=== PATIENT | male | born 1960 | race Caucasian/White ===

== ENCOUNTER 2016-07-27 08:05 | Emergency (ER) | payer OTHER ==
[~2016-07-27] VITALS: Ht 170.2 cm; Wt 62.6 kg
[2016-07-27 08:23] LABS: BASOPHIL COUNT 0.1 K/uL (0-0.1); EOSINOPHIL (%) 3.7 % (0-5); EOSINOPHIL COUNT 0.2 K/uL (0-0.3); HEMATOCRIT 43.4 % (38.0-50.0); LYMPHOCYTE COUNT 2.1 K/uL (1.0-2.8); MCH 33.8 PG (29.0-34.0); MCHC 34.8 G/DL (30.0-36.0); MCV 97.1 FL (86-99); MEAN PLAT.VOLUME 9.4 uM^3 (9.0-12.4); MONOCYTE (%) 10.4 % (3-12); MONOCYTE COUNT 0.5 K/uL (0-0.8); NEUTROPHIL (%) 44.3 % (45-76); NEUTROPHIL COUNT 2.3 K/uL (1.8-6.4); PLATELET COUNT 206 K/uL (156-360); RBC DIS.WIDTH-CV 12.3 % (11.8-14.6); RBC DIS.WIDTH-SD 42.2 % (39-53); RED BLOOD COUNT 4.47 M/uL (4.00-5.50); WHITE BLOOD COUNT 5.2 K/uL (4.1-10.2)
[2016-07-27 08:36] LABS: AMYLASE 89 IU/L (1-118); CHLORIDE 110 mEq/L (99-109); POTASSIUM 4.6 mEq/L (3.7-5.4); SODIUM 143 mEq/L (136-147)
[2016-07-27 08:38] LABS: INTER. NORMALIZED RATIO 1.1; PROTHROMBIN TIME 11.1 (9.2-11.2); PTT 29.9 (25-32)
[2016-07-27 08:38] LABS: GLUCOSE 85 mg/dL (70-99)
[2016-07-27 08:39] LABS: ANION GAP 12 MEQ/L (2-14)
[2016-07-27 08:41] LABS: SERUM ETHYL ALCOHOL < 10 mg/dL
[2016-07-27 08:42] LABS: GFR ESTIMATE (CALCULATED) > 59 mL/min/
[2016-07-27 08:43] LABS: UREA NITROGEN (BUN) 9 mg/dL (9-23)
[2016-07-27 08:45] LABS: LIPASE 32 U/L (1.0-51.0)
[2016-07-27 08:47] LABS: TROP-I INTERPRETATION NEGATIVE; TROPONIN-I < 0.01 ng/mL (0.0-0.30)
[2016-07-27] MEDS ORDERED: ZUBSOLV 0.7-0.1 EACH SL (11:39)
[2016-07-27 14:28] VITALS: BP 145/81
== END 2016-07-27 14:30 | disposition short-term general hospital (02) ==
LOC: EME → EDBD 08:05 → EME 08:05
PROVIDERS: Emergency Medicine
DX: G45.9 Transient cerebral ischemic attack, unspecified (principal); I65.22 Occlusion and stenosis of left carotid artery; I66.02 Occlusion and stenosis of left middle cerebral artery; F17.200 Nicotine dependence, unspecified, uncomplicated; Z88.5 Allergy status to narcotic agent; Z88.6 Allergy status to analgesic agent; Z88.8 Allergy status to other drugs, medicaments and biological substances; F12.10 Cannabis abuse, uncomplicated; F11.20 Opioid dependence, uncomplicated
CPT/HCPCS: 70450; 70544; 70549; 70551; 80048; 81003; 82150; 83690; 84484; 85025; 85610; 85730; 86850; 86900; 86901; 93005; 99281; 99285; G0480

== ENCOUNTER 2016-08-08 15:55 | Emergency (ER) | payer OTHER ==
[~2016-08-08] VITALS: Ht 170.2 cm; Wt 57.3 kg
[~2016-08-08 15:55] MED LIST: ZUBSOLV 0.7-0.1 EACH SL
[2016-08-08 16:44] LABS: BASOPHIL COUNT 0.1 K/uL (0-0.1); EOSINOPHIL (%) 2.1 % (0-5); EOSINOPHIL COUNT 0.2 K/uL (0-0.3); HEMATOCRIT 45.3 % (38.0-50.0); IMMATURE GRANULOCYTE (%) 0.1 % (0.0-0.7); IMMATURE GRANULOCYTE COUNT 0.1 K/uL; MCH 32.8 PG (29.0-34.0); MCHC 34.2 G/DL (30.0-36.0); MEAN PLAT.VOLUME 9.6 uM^3 (9.0-12.4); MONOCYTE (%) 8.7 % (3-12); MONOCYTE COUNT 0.7 K/uL (0-0.8); NEUTROPHIL (%) 62.3 % (45-76); NEUTROPHIL COUNT 4.7 K/uL (1.8-6.4); PLATELET COUNT 240 K/uL (156-360); RBC DIS.WIDTH-CV 11.7 % (11.8-14.6); RED BLOOD COUNT 4.72 M/uL (4.00-5.50); WHITE BLOOD COUNT 7.6 K/uL (4.1-10.2)
[2016-08-08 16:49] LABS: INTER. NORMALIZED RATIO 1.2; PROTHROMBIN TIME 11.8 (9.2-11.2); PTT 28.5 (25-32)
[2016-08-08 16:53] LABS: AMYLASE 84 IU/L (1-118); CHLORIDE 106 mEq/L (99-109); POTASSIUM 3.7 mEq/L (3.7-5.4); SODIUM 142 mEq/L (136-147)
[2016-08-08 16:55] LABS: GLUCOSE 86 mg/dL (70-99)
[2016-08-08 16:56] LABS: ANION GAP 11 MEQ/L (2-14)
[2016-08-08 16:58] LABS: GFR ESTIMATE (CALCULATED) > 59 mL/min/; SERUM ETHYL ALCOHOL < 10 mg/dL
[2016-08-08 16:59] LABS: UREA NITROGEN (BUN) 11 mg/dL (9-23)
[2016-08-08 17:01] LABS: LIPASE 45 U/L (1.0-51.0); TROP-I INTERPRETATION NEGATIVE; TROPONIN-I < 0.01 ng/mL (0.0-0.30)
[2016-08-08 18:47] VITALS: BP 147/102
== END 2016-08-08 18:29 | disposition short-term general hospital (02) ==
LOC: EME → EDBD 15:55 → EME 15:55
PROVIDERS: Emergency Medicine
DX: I63.312 Cerebral infarction due to thrombosis of left middle cerebral artery (principal); R29.717 NIHSS score 17; F17.200 Nicotine dependence, unspecified, uncomplicated; Z86.73 Personal history of transient ischemic attack (TIA), and cerebral infarction without residual deficits; Z88.6 Allergy status to analgesic agent
CPT/HCPCS: 70450; 71010; 80048; 81003; 82150; 83690; 84484; 85025; 85610; 85730; 86850; 86900; 86901; 93005; 99281; 99285; G0480

== ENCOUNTER 2016-08-29 10:10 | Inpatient (IN) | payer OTHER ==
[~2016-08-29] VITALS: Ht 180.3 cm; Wt 53.5 kg
[2016-08-29] MEDS ORDERED: AUGMENTIN875 MG PO (20:52)
[2016-08-29] MEDS ORDERED: ASPIR 8181 M1 PO (20:55)
[2016-08-29] MEDS ORDERED: LIPITOR80 MG PO (20:56)
[2016-08-29] MEDS ORDERED: PROZAC20 MG PO (20:56)
[2016-08-29] MEDS ORDERED: PLAVIX75 MG PO (20:56)
[2016-08-29] MEDS ORDERED: FOLIC ACID1 MG PO (20:57)
[2016-08-29] MEDS ORDERED: HEPARIN SO5000 UNITS SC (20:58)
[2016-08-29] MEDS ORDERED: THERAPEUTIC M PO (20:58)
[2016-08-29] MEDS ORDERED: NICODERM CQ1 EAC2 TD (20:59)
[2016-08-29] MEDS ORDERED: NYSTATIN100000 UN1 PO (21:00)
[2016-08-29] MEDS ORDERED: THIAMINE HCL100 MG PO (21:00)
[2016-08-29] MEDS ORDERED: TYLENOL REGULA325 MG PO (21:02)
[2016-08-29] MEDS ORDERED: IMODIUM A-D2 M2 PO (21:02)
[2016-08-29] MEDS ORDERED: NAPROSYN250 MG PO (21:03)
[2016-08-29 21:18] VITALS: BP 161/85
[2016-08-30] VITALS: BP 127/76
[2016-08-30 05:43] VITALS: BP 132/71
[2016-08-30 06:15] LABS: MCH 31.5 PG (29.0-34.0); MCHC 32.1 G/DL (30.0-36.0); MCV 98.2 FL (86-99); MEAN PLAT.VOLUME 10.1 uM^3 (9.0-12.4); RBC DIS.WIDTH-CV 12.2 % (11.8-14.6); RBC DIS.WIDTH-SD 43.9 % (39-53); RED BLOOD COUNT 3.87 M/uL (4.00-5.50); WHITE BLOOD COUNT 9.4 K/uL (4.1-10.2)
[2016-08-30 06:50] LABS: ALKALINE PHOSPHATASE 87 IU/L (3-129); ANION GAP 11 MEQ/L (2-14); CHLORIDE 111 MEQ/L (99-109); GFR ESTIMATE (CALCULATED) > 59 mL/min/; GLUCOSE 119 mg/dL (70-99); POTASSIUM 4.2 MEQ/L (3.7-5.4); SAMPLE HEMOLYSIS CHECK 0; SAMPLE ICTERIC CHECK 0; SAMPLE LIPEMIA CHECK 0; SODIUM 148 MEQ/L (136-147); TOTAL BILIRUBIN 0.3 MG/DL (0.0-1.0); UREA NITROGEN (BUN) 22 mg/dL (9-23)
[2016-08-30 07:11] LABS: PLATELET COUNT 445 K/uL (156-360)
[2016-08-30 15:40] VITALS: BP 140/70
[2016-08-31 05:48] VITALS: BP 140/86
[2016-08-31 13:55] VITALS: BP 120/70
[2016-09-01 06:16] VITALS: BP 139/91
[2016-09-01 09:38] VITALS: BP 122/80
[2016-09-01 15:42] VITALS: BP 132/84
[2016-09-02 00:30] VITALS: BP 131/87
[2016-09-02 05:41] VITALS: BP 130/80
[2016-09-02 10:36] LABS: HEMATOCRIT 39.8 % (38.0-50.0); MCH 31.9 PG (29.0-34.0); MCHC 32.4 G/DL (30.0-36.0); MCV 98.3 FL (86-99); MEAN PLAT.VOLUME 10.3 uM^3 (9.0-12.4); PLATELET COUNT 350 K/uL (156-360); RBC DIS.WIDTH-CV 12.4 % (11.8-14.6); RBC DIS.WIDTH-SD 44.8 % (39-53); RED BLOOD COUNT 4.05 M/uL (4.00-5.50); WHITE BLOOD COUNT 7.3 K/uL (4.1-10.2)
[2016-09-02 11:16] LABS: TROP-I INTERPRETATION NEGATIVE; TROPONIN-I < 0.01 ng/mL (0.0-0.30)
[2016-09-02 11:54] LABS: ALKALINE PHOSPHATASE 75 IU/L (3-129); ANION GAP 11 MEQ/L (2-14); CHLORIDE 108 MEQ/L (99-109); GFR ESTIMATE (CALCULATED) > 59 mL/min/; GLUCOSE 147 mg/dL (70-99); SAMPLE HEMOLYSIS CHECK 0; SAMPLE ICTERIC CHECK 0; SAMPLE LIPEMIA CHECK 0; SODIUM 148 MEQ/L (136-147); TOTAL BILIRUBIN 0.4 MG/DL (0.0-1.0); UREA NITROGEN (BUN) 21 mg/dL (9-23)
[2016-09-02 15:02] VITALS: BP 115/74
[2016-09-03 05:30] VITALS: BP 115/68
[2016-09-03 15:37] VITALS: BP 107/69
[2016-09-04 09:46] LABS: EOSINOPHIL (%) 2.6 % (0-5); EOSINOPHIL COUNT 0.1 K/uL (0-0.3); HEMATOCRIT 40.6 % (38.0-50.0); IMMATURE GRANULOCYTE (%) 0.4 % (0.0-0.7); LYMPHOCYTE COUNT 1.5 K/uL (1.0-2.8); MCH 30.9 PG (29.0-34.0); MCV 99.5 FL (86-99); MEAN PLAT.VOLUME 10.4 uM^3 (9.0-12.4); MONOCYTE (%) 7.7 % (3-12); MONOCYTE COUNT 0.4 K/uL (0-0.8); NEUTROPHIL (%) 58.7 % (45-76); PLATELET COUNT 295 K/uL (156-360); RBC DIS.WIDTH-CV 12.6 % (11.8-14.6); RBC DIS.WIDTH-SD 45.2 % (39-53); RED BLOOD COUNT 4.08 M/uL (4.00-5.50); WHITE BLOOD COUNT 5.1 K/uL (4.1-10.2)
[2016-09-04 10:22] LABS: HCV RNA (LOG IU/mL) 5.54 (<1.18)
[2016-09-04 15:40] VITALS: BP 130/84
[2016-09-05 05:34] VITALS: BP 115/70
[2016-09-05 16:14] VITALS: BP 126/76
[2016-09-06 16:14] VITALS: BP 130/80
[2016-09-06 20:50] VITALS: BP 117/77
[2016-09-07 04:12] VITALS: BP 110/62
[2016-09-07 08:48] VITALS: BP 100/60
[2016-09-07 15:35] VITALS: BP 120/74
[2016-09-08 05:51] VITALS: BP 105/72
[2016-09-08 06:57] VITALS: BP 110/70
[2016-09-08 15:27] VITALS: BP 111/71
[2016-09-09 06:11] VITALS: BP 112/61
[2016-09-09 16:15] VITALS: BP 115/74
[2016-09-09 19:38] LABS: HEMATOCRIT 35.8 % (38.0-50.0); MCH 31.6 PG (29.0-34.0); MCHC 32.4 G/DL (30.0-36.0); MCV 97.5 FL (86-99); RED BLOOD COUNT 3.67 M/uL (4.00-5.50); WHITE BLOOD COUNT 5.9 K/uL (4.1-10.2)
[2016-09-09 19:39] LABS: MEAN PLAT.VOLUME 10.7 uM^3 (9.0-12.4); PLATELET COUNT 208 K/uL (156-360); RBC DIS.WIDTH-CV 13.1 % (11.8-14.6); RBC DIS.WIDTH-SD 46.7 % (39-53)
[2016-09-09 20:04] LABS: ALKALINE PHOSPHATASE 83 IU/L (3-129); ANION GAP 8 MEQ/L (2-14); CHLORIDE 102 MEQ/L (99-109); GFR ESTIMATE (CALCULATED) > 59 mL/min/; GLUCOSE 105 mg/dL (70-99); POTASSIUM 3.8 MEQ/L (3.7-5.4); SAMPLE HEMOLYSIS CHECK 0; SAMPLE ICTERIC CHECK 0; SAMPLE LIPEMIA CHECK 0; SODIUM 139 MEQ/L (136-147); TOTAL BILIRUBIN 0.3 MG/DL (0.0-1.0); UREA NITROGEN (BUN) 14 mg/dL (9-23)
[2016-09-10 01:23] LABS: HEMATOCRIT 35.5 % (38.0-50.0); MCH 31.5 PG (29.0-34.0); MCHC 32.7 G/DL (30.0-36.0); MCV 96.5 FL (86-99); MEAN PLAT.VOLUME 10.5 uM^3 (9.0-12.4); PLATELET COUNT 209 K/uL (156-360); RBC DIS.WIDTH-CV 12.9 % (11.8-14.6); RBC DIS.WIDTH-SD 45.1 % (39-53); RED BLOOD COUNT 3.68 M/uL (4.00-5.50); WHITE BLOOD COUNT 6.7 K/uL (4.1-10.2)
[2016-09-10 01:36] LABS: CHLORIDE 101 mEq/L (99-109); POTASSIUM 3.9 mEq/L (3.7-5.4); SODIUM 139 mEq/L (136-147)
[2016-09-10 01:37] LABS: D-DIMER ELISA 0.41 mg/L FEU (< 0.57)
[2016-09-10 01:38] LABS: GLUCOSE 100 mg/dL (70-99)
[2016-09-10 01:39] LABS: ANION GAP 10 MEQ/L (2-14)
[2016-09-10 01:40] LABS: TOTAL BILIRUBIN 0.3 mg/dL (0.0-1.0)
[2016-09-10 01:41] LABS: ALKALINE PHOSPHATASE 99 IU/L (3-129)
[2016-09-10 01:42] LABS: GFR ESTIMATE (CALCULATED) > 59 mL/min/
[2016-09-10 01:43] LABS: UREA NITROGEN (BUN) 18 mg/dL (9-23)
[2016-09-10 01:45] LABS: TROP-I INTERPRETATION NEGATIVE; TROPONIN-I < 0.01 ng/mL (0.0-0.30)
[2016-09-10] MEDS ORDERED: NITROSTAT0.4 MG SL (14:27)
== END 2016-09-10 01:28 | DRG 56 ==
LOC: 3WEST 10:10
PROVIDERS: Internal Medicine; Internal Medicine Gastroenterology; Physical Medicine & Rehabilitation Pain Medicine
PROC: F07M0ZZ Range of Motion and Joint Mobility Treatment of Musculoskeletal System - Whole Body (ICD-10-PCS; principal; 2016-08-29)
DX: I69.351 Hemiplegia and hemiparesis following cerebral infarction affecting right dominant side (principal); J69.0 Pneumonitis due to inhalation of food and vomit; B37.0 Candidal stomatitis; E87.0 Hyperosmolality and hypernatremia; R41.4 Neurologic neglect syndrome; N31.9 Neuromuscular dysfunction of bladder, unspecified; I69.391 Dysphagia following cerebral infarction; R13.10 Dysphagia, unspecified; I69.320 Aphasia following cerebral infarction; R07.9 Chest pain, unspecified; B19.20 Unspecified viral hepatitis C without hepatic coma; E78.00 Pure hypercholesterolemia, unspecified; D72.829 Elevated white blood cell count, unspecified; D64.9 Anemia, unspecified; Z93.1 Gastrostomy status; R33.9 Retention of urine, unspecified; F10.10 Alcohol abuse, uncomplicated; R10.9 Unspecified abdominal pain; F19.10 Other psychoactive substance abuse, uncomplicated; R25.3 Fasciculation; K59.00 Constipation, unspecified; J44.9 Chronic obstructive pulmonary disease, unspecified; K62.5 Hemorrhage of anus and rectum; I69.390 Apraxia following cerebral infarction; F17.210 Nicotine dependence, cigarettes, uncomplicated; J32.9 Chronic sinusitis, unspecified; K64.8 Other hemorrhoids
CPT/HCPCS: 70450; 71010; 71020; 74000; 74230; 80053; 84484; 85025; 85027; 85379; 87522 90; 92507 GN; 92523 GN; 92526 GN; 92611 GN; 93971; 94640; 94640 76; 94760; 97110 GO; 97112 GO; 97530 GP; 99202; J1644

== ENCOUNTER 2016-09-10 01:21 | Observation (INO) | payer OTHER ==
[~2016-09-10] VITALS: Ht 167.6 cm; Wt 49.3 kg
[~2016-09-10 01:21] MED LIST changes: +ASPIR 8181 M1 PO; +AUGMENTIN875 MG PO; +FOLIC ACID1 MG PO; +HEPARIN SO5000 UNITS SC; +IMODIUM A-D2 M2 PO; +LIPITOR80 MG PO; +NAPROSYN250 MG PO; +NICODERM CQ1 EAC2 TD; +NYSTATIN100000 UN1 PO; +PLAVIX75 MG PO; +PROZAC20 MG PO; +THERAPEUTIC M PO; +THIAMINE HCL100 MG PO; +TYLENOL REGULA325 MG PO
[2016-09-10 02:05] VITALS: BP 115/73
[2016-09-10 05:14] LABS: METH RESISTANT S AUREUS PCR POSITIVE (NEGATIVE)
[2016-09-10 05:19] LABS: PROBE CHECK PASS
[2016-09-10 06:58] LABS: HEMATOCRIT 34.9 % (38.0-50.0); MCH 31.5 PG (29.0-34.0); MCHC 32.4 G/DL (30.0-36.0); MCV 97.2 FL (86-99); PLATELET COUNT 204 K/uL (156-360); RBC DIS.WIDTH-CV 13.2 % (11.8-14.6); RBC DIS.WIDTH-SD 46.3 % (39-53); RED BLOOD COUNT 3.59 M/uL (4.00-5.50); WHITE BLOOD COUNT 6.6 K/uL (4.1-10.2)
[2016-09-10 07:21] LABS: TROP-I INTERPRETATION NEGATIVE; TROPONIN-I < 0.01 ng/mL (0.0-0.30)
[2016-09-10 08:12] LABS: ALKALINE PHOSPHATASE 94 IU/L (3-129); ANION GAP 6 MEQ/L (2-14); CHLORIDE 103 MEQ/L (99-109); GFR ESTIMATE (CALCULATED) > 59 mL/min/; GLUCOSE 107 mg/dL (70-99); POTASSIUM 4.1 MEQ/L (3.7-5.4); SAMPLE HEMOLYSIS CHECK 0; SAMPLE ICTERIC CHECK 0; SAMPLE LIPEMIA CHECK 0; SODIUM 137 MEQ/L (136-147); TOTAL BILIRUBIN 0.3 MG/DL (0.0-1.0); UREA NITROGEN (BUN) 15 mg/dL (9-23)
[2016-09-10 08:30] VITALS: BP 102/69
[2016-09-10 12:49] VITALS: BP 108/75
[2016-09-10 13:31] LABS: TROP-I INTERPRETATION NEGATIVE; TROPONIN-I < 0.01 ng/mL (0.0-0.30)
[2016-09-10] MEDS ORDERED: NITROSTAT0.4 MG SL (14:27)
== END 2016-09-10 17:00 ==
LOC: 4WEST 01:21 → 5WEST 01:34
PROVIDERS: Internal Medicine; Physician Assistant Medical
DX: R07.9 Chest pain, unspecified (principal); I69.851 Hemiplegia and hemiparesis following other cerebrovascular disease affecting right dominant side; I69.820 Aphasia following other cerebrovascular disease; I69.891 Dysphagia following other cerebrovascular disease; R13.10 Dysphagia, unspecified; I10 Essential (primary) hypertension; E78.00 Pure hypercholesterolemia, unspecified; Z87.891 Personal history of nicotine dependence
CPT/HCPCS: 80053; 84484; 85027; 87641; 93005; 99202; G0378; S0028

== ENCOUNTER 2016-09-10 17:15 | Inpatient (IN) | payer OTHER ==
[2016-09-10 17:00] VITALS: BP 124/82
[~2016-09-10 17:15] MED LIST changes: +NITROSTAT0.4 MG SL
[2016-09-10 23:29] VITALS: BP 108/65
[2016-09-11 06:54] VITALS: BP 110/62
[2016-09-11 08:50] LABS: HEMATOCRIT 35.7 % (38.0-50.0); MCH 31.8 PG (29.0-34.0); MCHC 31.9 G/DL (30.0-36.0); MCV 99.4 FL (86-99); MEAN PLAT.VOLUME 10.8 uM^3 (9.0-12.4); PLATELET COUNT 214 K/uL (156-360); RBC DIS.WIDTH-CV 13.3 % (11.8-14.6); RBC DIS.WIDTH-SD 48.5 % (39-53); RED BLOOD COUNT 3.59 M/uL (4.00-5.50); WHITE BLOOD COUNT 4.9 K/uL (4.1-10.2)
[2016-09-11 09:14] LABS: ALKALINE PHOSPHATASE 88 IU/L (3-129); ANION GAP 5 MEQ/L (2-14); CHLORIDE 101 MEQ/L (99-109); GFR ESTIMATE (CALCULATED) > 59 mL/min/; GLUCOSE 125 mg/dL (70-99); SAMPLE HEMOLYSIS CHECK 0; SAMPLE ICTERIC CHECK 0; SAMPLE LIPEMIA CHECK 0; SODIUM 137 MEQ/L (136-147); TOTAL BILIRUBIN 0.3 MG/DL (0.0-1.0); UREA NITROGEN (BUN) 17 mg/dL (9-23)
[2016-09-11 15:58] VITALS: BP 116/73
[2016-09-12 05:08] VITALS: BP 113/76
[2016-09-12 15:56] VITALS: BP 114/81
[2016-09-13 04:57] VITALS: BP 115/67
[2016-09-13 15:31] VITALS: BP 114/72
[2016-09-14 05:44] VITALS: BP 113/67
[2016-09-14 07:33] VITALS: BP 110/50
[2016-09-14 15:27] VITALS: BP 122/71
[2016-09-15 05:18] VITALS: BP 114/68
[2016-09-15 15:00] VITALS: BP 102/80
[2016-09-16 06:33] VITALS: BP 108/72
[2016-09-16 15:12] VITALS: BP 112/71
[2016-09-17 06:15] VITALS: BP 109/72
[2016-09-17 15:48] VITALS: BP 131/78
[2016-09-18 06:35] VITALS: BP 109/70
[2016-09-18 15:09] VITALS: BP 122/71
[2016-09-19 05:06] VITALS: BP 121/63
[2016-09-19 05:36] LABS: HEMATOCRIT 35.7 % (38.0-50.0); MCH 31.4 PG (29.0-34.0); MCHC 32.5 G/DL (30.0-36.0); MCV 96.7 FL (86-99); MEAN PLAT.VOLUME 9.6 uM^3 (9.0-12.4); PLATELET COUNT 223 K/uL (156-360); RBC DIS.WIDTH-CV 13.3 % (11.8-14.6); RBC DIS.WIDTH-SD 47.8 % (39-53); RED BLOOD COUNT 3.69 M/uL (4.00-5.50); WHITE BLOOD COUNT 5.3 K/uL (4.1-10.2)
[2016-09-19 05:53] LABS: ALKALINE PHOSPHATASE 74 IU/L (3-129); ANION GAP 9 MEQ/L (2-14); CHLORIDE 106 MEQ/L (99-109); GFR ESTIMATE (CALCULATED) > 59 mL/min/; GLUCOSE 93 mg/dL (70-99); POTASSIUM 4.4 MEQ/L (3.7-5.4); SAMPLE HEMOLYSIS CHECK 0; SAMPLE ICTERIC CHECK 0; SAMPLE LIPEMIA CHECK 0; SODIUM 141 MEQ/L (136-147); TOTAL BILIRUBIN 0.4 MG/DL (0.0-1.0); UREA NITROGEN (BUN) 11 mg/dL (9-23)
[2016-09-19 08:05] LABS: PREALBUMIN 22.8 mg/dL (10-40)
[2016-09-19 15:54] VITALS: BP 118/76
[2016-09-20 05:48] VITALS: BP 112/59
[2016-09-20 15:08] VITALS: BP 126/83
[2016-09-21 06:48] VITALS: BP 111/60
[2016-09-21 09:38] VITALS: BP 118/78
[2016-09-21 15:01] VITALS: BP 115/67
[2016-09-22 05:34] VITALS: BP 116/58
[2016-09-22 08:16] VITALS: BP 110/74
[2016-09-22 14:57] VITALS: BP 116/74
[2016-09-23 05:39] VITALS: BP 115/64
[2016-09-23 15:00] VITALS: BP 111/67
[2016-09-24 05:57] VITALS: BP 128/71
[2016-09-24 16:54] VITALS: BP 102/73
[2016-09-25 05:13] VITALS: BP 120/65
[2016-09-25 15:00] VITALS: BP 123/74
[2016-09-26 05:42] LABS: HEMATOCRIT 35.6 % (38.0-50.0); MCH 32.1 PG (29.0-34.0); MCHC 32.9 G/DL (30.0-36.0); MCV 97.5 FL (86-99); PLATELET COUNT 259 K/uL (156-360); RBC DIS.WIDTH-CV 13.3 % (11.8-14.6); RBC DIS.WIDTH-SD 47.8 % (39-53); RED BLOOD COUNT 3.65 M/uL (4.00-5.50); WHITE BLOOD COUNT 5.1 K/uL (4.1-10.2)
[2016-09-26 05:58] LABS: ALKALINE PHOSPHATASE 62 IU/L (3-129); ANION GAP 7 MEQ/L (2-14); CHLORIDE 107 MEQ/L (99-109); GFR ESTIMATE (CALCULATED) > 59 mL/min/; GLUCOSE 83 mg/dL (70-99); SAMPLE HEMOLYSIS CHECK 0; SAMPLE ICTERIC CHECK 0; SAMPLE LIPEMIA CHECK 0; SODIUM 141 MEQ/L (136-147); TOTAL BILIRUBIN 0.4 MG/DL (0.0-1.0); UREA NITROGEN (BUN) 9 mg/dL (9-23)
[2016-09-26 06:10] VITALS: BP 100/61
[2016-09-26 14:56] VITALS: BP 117/79
[2016-09-27 04:57] VITALS: BP 104/65
[2016-09-27] MEDS ORDERED: ASPIR 8181 M1 PO (12:51)
[2016-09-27] MEDS ORDERED: FOLIC ACID1 MG PO (12:51)
[2016-09-27] MEDS ORDERED: PLAVIX75 MG PO (12:51)
[2016-09-27] MEDS ORDERED: PROZAC20 MG PO (12:51)
[2016-09-27] MEDS ORDERED: THIAMINE HCL100 MG PO (12:51)
[2016-09-27] MEDS ORDERED: NICODERM CQ1 EAC2 TD (12:51)
[2016-09-27] MEDS ORDERED: FAMOTIDINE20 MG PO (12:51)
[2016-09-27 15:06] VITALS: BP 113/76
== END 2016-09-27 15:51 | DRG 57 ==
LOC: 3WEST 17:15
PROVIDERS: Physical Medicine & Rehabilitation Pain Medicine
PROC: F07M0ZZ Range of Motion and Joint Mobility Treatment of Musculoskeletal System - Whole Body (ICD-10-PCS; principal; 2016-09-10)
DX: I69.351 Hemiplegia and hemiparesis following cerebral infarction affecting right dominant side (principal); I69.391 Dysphagia following cerebral infarction; I69.320 Aphasia following cerebral infarction; R26.2 Difficulty in walking, not elsewhere classified; S99.921A Unspecified injury of right foot, initial encounter; W22.8XXA Striking against or struck by other objects, initial encounter; E78.00 Pure hypercholesterolemia, unspecified; F10.10 Alcohol abuse, uncomplicated; F19.10 Other psychoactive substance abuse, uncomplicated; F11.10 Opioid abuse, uncomplicated; M21.371 Foot drop, right foot; J32.4 Chronic pansinusitis; F17.210 Nicotine dependence, cigarettes, uncomplicated; B19.20 Unspecified viral hepatitis C without hepatic coma; D64.9 Anemia, unspecified; J44.9 Chronic obstructive pulmonary disease, unspecified; J45.909 Unspecified asthma, uncomplicated; Z93.1 Gastrostomy status; Z79.82 Long term (current) use of aspirin; Z79.02 Long term (current) use of antithrombotics/antiplatelets
CPT/HCPCS: 73630; 74230; 80053; 84134; 85027; 92507 GN; 92523 GN; 92526 GN; 92611 GN; 93005; 97110 GO; 97112 GO; 97530 GP; G0283 GO; J1650

== ENCOUNTER → 2017-01-15 | Outpatient (CLI) | payer OTHER ==
[~2017-01-15] VITALS: Ht 170.2 cm; Wt 61.2 kg
[~2017-01-15] MED LIST changes: +CYANOCOBALAM1000 MCG PO; +ECOTRIN325 MG PO; +FAMOTIDINE20 MG PO; +LIORESAL10 MG PO
== END | disposition home or self-care (01) ==
LOC: AMB 14:54
PROC: 0DP64UZ Removal of Feeding Device from Stomach, Percutaneous Endoscopic Approach (ICD-10-PCS; principal; 2017-01-15)
DX: Z43.1 Encounter for attention to gastrostomy (principal); Z86.73 Personal history of transient ischemic attack (TIA), and cerebral infarction without residual deficits; J44.9 Chronic obstructive pulmonary disease, unspecified; B19.20 Unspecified viral hepatitis C without hepatic coma; Z87.898 Personal history of other specified conditions; Z79.82 Long term (current) use of aspirin; F17.210 Nicotine dependence, cigarettes, uncomplicated